=== PATIENT | female | born 1945 | race African-American/Black ===

== ENCOUNTER 2020-06-14 11:55 | Emergency (ER) | payer BC, OTHER ==
[~2020-06-14] VITALS: Ht 157.5 cm; Wt 68.0 kg
[~2020-06-14 11:55] MED LIST: FLUO10CA26; HYDR-3513; LANS30CA55
[2020-06-14] MEDS ORDERED: SODIUM CHLORIDE 0.9% 1,000 ML IV ONE (14:00)
[2020-06-14] MEDS ORDERED: MORPHINE SULFATE 4 MG/ML CPJ (NOT FOR IM USE) IV ONE (14:00)
[2020-06-14 14:09] LABS: CLARITY URINE TURBID (CLEAR); COLOR URINE YELLOW (YELLOW); KETONES URINE NEGATIVE (NEGATIVE); LEUKOCYTE ESTERASE URINE 2+ (NEGATIVE); NITRITE URINE POSITIVE (NEGATIVE); OCCULT BLOOD URINE 3+ (NEGATIVE); PH URINE 5.5 (4.5-8.0); PROTEIN URINE 3+ (NEGATIVE); SPECIFIC GRAVITY URINE 1.014 (1.005-1.030)
[2020-06-14 15:21] LABS: BASOPHILS % 0.6 % (0.0-2.0); EOSINOPHILS % 1.8 % (0.0-5.0); HEMATOCRIT. 39.6 % (36.0-48.0); HEMOGLOBIN. 13.6 g/dL (12.0-16.0); MEAN CORPUSCULAR HEMOGLOBIN 30.8 pg (28.0-32.0); MEAN CORPUSCULAR VOLUME 89.9 fL (81.0-99.0); MEAN PLATELET VOLUME 7.9 fl (7.4-10.4); MONOCYTES % 7.7 % (2.0-8.0); NEUTROPHILS % 58.9 % (40.0-76.0); PLATELET 314 x1000/uL (130-400); RED CELL DISTRIBUTION WIDTH 13.7 % (11.6-14.6)
[2020-06-14 15:28] LABS: CHLORIDE 107 mEq/L (98-107)
[2020-06-14] MEDS ORDERED: NITROFURANTOIN 100MG M/M CAPSULE PO ONE (15:45)
[2020-06-14 18:27] VITALS: BP 159/82
== END 2020-06-14 18:30 | disposition home or self-care (01) ==
LOC: ER 11:55
DX: N39.0 Urinary tract infection, site not specified (principal); Z88.0 Allergy status to penicillin; Z88.2 Allergy status to sulfonamides
CPT/HCPCS: 36415; 80048; 81003; 84484; 85025; 85044; 87077; 87086; 87186; 93005; 99284; J7030

== ENCOUNTER 2020-06-16 12:10 | Emergency (ER) | payer BC, MEDICAID ==
[~2020-06-16] VITALS: Ht 157.5 cm; Wt 82.0 kg
[2020-06-16] MEDS ORDERED: HYDROCODONE/ACETAMINOPHEN 5/325MG TABLET PO STA (16:16)
[2020-06-16 16:31] LABS: CLARITY URINE TURBID (CLEAR); COLOR URINE YELLOW (YELLOW); KETONES URINE NEGATIVE (NEGATIVE); LEUKOCYTE ESTERASE URINE 3+ (NEGATIVE); NITRITE URINE POSITIVE (NEGATIVE); OCCULT BLOOD URINE 2+ (NEGATIVE); PROTEIN URINE 2+ (NEGATIVE); SPECIFIC GRAVITY URINE 1.011 (1.005-1.030)
[2020-06-16 16:50] LABS: BASOPHILS % 0.9 % (0.0-2.0); EOSINOPHILS % 2.8 % (0.0-5.0); HEMATOCRIT. 39.5 % (36.0-48.0); HEMOGLOBIN. 13.6 g/dL (12.0-16.0); LYMPHOCYTES % 39.4 % (20.0-50.0); MEAN CORPUSCULAR HEMOGLOBIN 30.7 pg (28.0-32.0); MEAN CORPUSCULAR VOLUME 88.9 fL (81.0-99.0); MEAN PLATELET VOLUME 7.2 fl (7.4-10.4); MONOCYTES % 8.6 % (2.0-8.0); NEUTROPHILS % 48.3 % (40.0-76.0); PLATELET 334 x1000/uL (130-400); RED BLOOD CELL COUNT 4.44 mill/uL (4.2-5.4); RED CELL DISTRIBUTION WIDTH 13.5 % (11.6-14.6)
[2020-06-16 16:56] LABS: CHLORIDE 106 mEq/L (98-107)
[2020-06-16 18:27] VITALS: BP 137/86
[2020-06-16] MEDS ORDERED: CEPHALEXIN 250MG CAPSULE PO ONE (18:30)
== END 2020-06-16 19:10 | disposition home or self-care (01) ==
LOC: ER 12:10
DX: N39.0 Urinary tract infection, site not specified (principal); D57.00 Hb-SS disease with crisis, unspecified; Z79.899 Other long term (current) drug therapy
CPT/HCPCS: 36415; 80053; 81003; 85025; 85044; 99283